=== PATIENT | male | born 1950 | race Caucasian/White ===

== ENCOUNTER 2017-09-09 01:00 | Emergency (ER) | payer MEDICARE ==
[2017-09-09 01:58] LABS: BASOPHILS 0.3 % (0.0-2); EOSINOPHILS 1.8 %; HEMATOCRIT 40.7 % (36.0-48.0); HEMOGLOBIN 13.5 g/dL (12.0-16.0); IMMATURE GRANULOCYTES 0.1 % (0-5); LYMPHOCYTES 17.1 % (15-50); MCH 30.2 pg (26.0-34.0); MCHC 33.2 g/dL (31.0-37.0); MCV 91.1 fL (80.0-100.0); MEAN PLATELET VOLUME 10.4 fL (7.4-10.4); MONOCYTES 6.5 % (2-11); NEUTROPHILS 74.2 % (40-80); PLATELET COUNT 156 10x3/uL (130-400); RBC 4.47 10x6/uL (4.20-6.10); RDW 13.1 % (11.5-14.5)
[2017-09-09 02:10] LABS: APTT 27.6 SECONDS (22.8-39.4); PROTIME 12.8 SECONDS (11.6-15.0)
== END 2017-09-09 03:15 | disposition home or self-care (01) ==
LOC: D.ER 01:00 → EDSEX 01:00 → D.ER 03:15
PROVIDERS: Family Medicine
DX: R04.0 Epistaxis (principal)

== ENCOUNTER 2017-09-09 08:23 | Day surgery (SDC) | payer MEDICARE ==
--- NOTE | ~2017-09-09 | HP ---
PATIENT: PAGE CERON MEDICAL RECORD: [id number] ACCOUNT: [id number] LOCATION:[facility] [place]- : 54 ADMISSION DATE: 09/09/17 HISTORY AND PHYSICAL EXAMINATION HISTORY OF PRESENT ILLNESS: Mr. Ceron is a 66-year-old male. He has a history of cardiac disease and a stent 3 years ago. He has been on aspirin and Plavix during that time. He has been having profuse right-sided epistaxis for about a day now. He has been to the Emergency Room previously and had an epistat placed and inflated, but he is bleeding profusely despite that. PHYSICAL EXAMINATION: GENERAL: He is a thin, but healthy, alert, oriented. He is a good historian, has normal voice. FACE: Normal and symmetric. No lesions. EYES: Sclerae and conjunctivae are normal. ORAL CAVITY AND OROPHARYNX: He has some blood running down the posterior pharynx. Palate is normal. NECK: No masses, no adenopathy. CHEST: Clear. CARDIOVASCULAR: Regular rate and rhythm, no murmur. NOSE: He has an epistat in the right side, profuse bleeding, some blood clot in the left side of the nose. IMPRESSION: Right-sided arterial apparent posterior epistaxis refractory to packing. PLAN: OR for control of epistaxis. TRANSINT:[id number] Voice Confirmation ID: [id number] DOCUMENT ID: [id number] MITRA IBARRA MD at 1150 CC: [id number] DICTATION DATE: 09/09/17 1101 ASSOCIATE PROJECT MANAGER: 09/09/17 1110 ADM IN [id number] [place] [address]
--- NOTE | ~2017-09-09 | OP ---
PATIENT NAME: PAGE FRIED MEDICAL RECORD: [id number] :54 LOCATION:[facility]- ADMISSION DATE:09/09/17 SURGEON: WAGNER ERWIN MD DATE OF OPERATION: 09/09/2017 PREOPERATIVE DIAGNOSIS: Right posterior epistaxis, uncontrolled by packing. POSTOPERATIVE DIAGNOSIS: Right posterior epistaxis, uncontrolled by packing. PROCEDURE: Endoscopic cautery of right posterior epistaxis. SURGEON: Wagner Erwin MD ANESTHESIA: General orotracheal. BLOOD LOSS: About 10 cc during the procedure. COMPLICATIONS: None. DISPOSITION: Recovery stable. FINDINGS: Arterial bleeder from the posterior septum. NASAL PACKING: None. DESCRIPTION OF PROCEDURE: He was brought to the operating room and placed in supine position, sedated and intubated by anesthesia. Obviously, he was still having profuse right-sided epistaxis. The pharynx was suctioned. The blood was evacuated from the left side of the nose with 11 pharynx suction. He had some sharp nasal septal spur to the left side, but no evidence of source of bleeding. The epistat both balloons were deflated, it was removed. All blood clot and blood was removed from the nose. It was carefully examined using a 0-degree scope. Inferiorly, the floor of the nose was normal, although blood was welling up quickly. Middle meatus was normal and then looking at nasal vault, I could see blood spraying on the middle turbinate from the septum. The source was arterial pumping bleeder from the septum, it was high on the septum behind the bony cartilaginous junction. Using suction cautery, I was able to ablate that vessel, stop the bleeding and then the rest of the nasal cavity and nasopharynx blood was evacuated. Air was examined. There were no lesions, masses, no other source of bleeding. With that completed, the area was watched. The NG tube was passed through the mouth into the stomach, a couple times to evacuate blood that he had swallowed. The area was again examined and was completely clean and dry. He was awakened, extubated, and transported to recovery in good condition. No complications. TRANSINT:[id number] Voice Confirmation ID: [id number] DOCUMENT ID: [id number] OPERATIVE REPORT [id number] PAGE FRIED WAGNER ERWIN MD at 1150 CC: [id number] DICTATION DATE: 09/09/17 1059 INSURANCE UNDERWRITER SALES: 09/09/17 1114 ADM IN [facility] [address] [id number]
[2017-09-09 09:18] LABS: BASOPHILS 0.2 % (0.0-2); EOSINOPHILS 1.2 %; HEMATOCRIT 40.2 % (36.0-48.0); HEMOGLOBIN 13.4 g/dL (12.0-16.0); IMMATURE GRANULOCYTES 0.2 % (0-5); LYMPHOCYTES 20.8 % (15-50); MCH 30.2 pg (26.0-34.0); MCHC 33.3 g/dL (31.0-37.0); MCV 90.5 fL (80.0-100.0); MEAN PLATELET VOLUME 10.4 fL (7.4-10.4); MONOCYTES 6.7 % (2-11); NEUTROPHILS 70.9 % (40-80); PLATELET COUNT 157 10x3/uL (130-400); RBC 4.44 10x6/uL (4.20-6.10); RDW 12.9 % (11.5-14.5); WBC 8.3 10x3/uL (4.8-10.8)
[2017-09-09 09:29] LABS: APTT 27.8 SECONDS (22.8-39.4); INR 1.08 (0.85-1.17); PROTIME 13.6 SECONDS (11.6-15.0)
== END 2017-09-09 12:35 | disposition home or self-care (01) ==
LOC: OBSVTIME → EDSEX 08:23 → D.ER 08:23 → D.OPS 08:23 → EDSTATUS 10:00 → D.SDCHOLD 11:34 → OBSVTIME 11:34 → D.ER 11:34 → D.SDCHOLD 11:34 → D.OPS 12:35
PROVIDERS: Emergency Medicine
DX: R04.0 Epistaxis (principal); I25.10 Atherosclerotic heart disease of native coronary artery without angina pectoris; I50.9 Heart failure, unspecified; I10 Essential (primary) hypertension; K21.9 Gastro-esophageal reflux disease without esophagitis; G47.30 Sleep apnea, unspecified; M19.90 Unspecified osteoarthritis, unspecified site; Z01.812 Encounter for preprocedural laboratory examination; Z01.810 Encounter for preprocedural cardiovascular examination